=== PATIENT | female | born 1945 | race Caucasian/White ===

== ENCOUNTER 2019-06-06 20:37 | Emergency (ER) | payer MEDICARE, OTHER ==
[2019-06-06] MEDS ORDERED: AMOXicillin 250 MG CAP ONE (20:52)
[2019-06-06] MEDS ORDERED: HYDROcodone/Acetaminophen 5/325 mg Tablet ONE (20:52)
== END 2019-06-06 20:58 | disposition home or self-care (01) ==
LOC: BURERS 20:37
DX: R22.0 Localized swelling, mass and lump, head (principal); I10 Essential (primary) hypertension
CPT/HCPCS: 99283